=== PATIENT | female | born 1960 | race Caucasian/White ===

== ENCOUNTER → 2020-01-13 09:22 | Outpatient (BNVA) | payer BC, SELFPAY | PROVIDERS: Family Provider Nurse Practitioner Family; PCP Nurse Practitioner; Visit Provider Nurse Practitioner | DX: E03.9 Hypothyroidism, unspecified (principal); E55.9 Vitamin D deficiency, unspecified | CPT/HCPCS: 80053; 80061; 81000; 82306; 84443 ==

== ENCOUNTER → 2020-06-20 11:45 | Outpatient (BNVA) | payer MEDICARE, OTHER, SELFPAY | PROVIDERS: Family Provider Nurse Practitioner Family; PCP Nurse Practitioner; Visit Provider Nurse Practitioner | DX: E03.9 Hypothyroidism, unspecified (principal); M54.16 Radiculopathy, lumbar region; I10 Essential (primary) hypertension; M25.551 Pain in right hip; E78.2 Mixed hyperlipidemia | CPT/HCPCS: 80053; 80061; 84443 ==

== ENCOUNTER → 2020-06-29 15:12 | Outpatient (BNVA) | payer MEDICARE, OTHER, SELFPAY | PROVIDERS: Family Provider Nurse Practitioner Family; PCP Nurse Practitioner; Referring Provider Nurse Practitioner; Visit Provider Orthopaedic Surgery | DX: M25.551 Pain in right hip (principal) | CPT/HCPCS: 73502 ==

== ENCOUNTER → 2021-02-03 09:22 | Outpatient (BNVA) | payer MEDICARE, OTHER, SELFPAY | PROVIDERS: Family Provider Nurse Practitioner Family; PCP Nurse Practitioner; Visit Provider Nurse Practitioner | DX: E03.9 Hypothyroidism, unspecified (principal); I10 Essential (primary) hypertension; M54.16 Radiculopathy, lumbar region; E78.2 Mixed hyperlipidemia; M16.11 Unilateral primary osteoarthritis, right hip; R42 Dizziness and giddiness | CPT/HCPCS: 80053; 80061; 81000; 84443; 85025 ==

== ENCOUNTER 2021-02-27 09:33 | Outpatient (CLI) | payer MEDICARE, OTHER, SELFPAY ==
--- NOTE | 2021-02-27 10:00 | MM_ITS ---
WS: [id number] BILATERAL DIGITAL SCREENING MAMMOGRAPHY WITH CAD CLINICAL INFORMATION: Z12.39 - Encounter for other screening for malignant neop... HISTORY: Screening mammogram. No current complaints. COMPARISON: TECHNIQUE: Bilateral CC and MLO views. FINDINGS: The breasts are composed of heterogeneous fibroglandular density tissue, which can limit the detectio n of small underlying mass lesions. Punctate and lucent centered calcifications. Benign milk of calci um left breast. No suspicious mass, asymmetry, calcifications, or architectural distortion. No eviden ce of malignancy. MM/[place] [id number] IMPRESSION: BI-RADS: 2-Benign FOLLOW UP: 1 Year Follow-up Recommend return to annual screening mammography.
== END 2021-02-27 09:34 | disposition home or self-care (01) ==
LOC: RADSHAW 09:41
PROVIDERS: PCP Nurse Practitioner; Visit Provider Nurse Practitioner
DX: Z12.31 Encounter for screening mammogram for malignant neoplasm of breast (principal)
CPT/HCPCS: 77067

== ENCOUNTER → 2021-09-22 10:14 | Outpatient (BNVA) | payer MEDICARE, SELFPAY | PROVIDERS: PCP Nurse Practitioner; Visit Provider Nurse Practitioner | DX: M54.16 Radiculopathy, lumbar region (principal); I10 Essential (primary) hypertension; E78.2 Mixed hyperlipidemia; M16.11 Unilateral primary osteoarthritis, right hip; E55.9 Vitamin D deficiency, unspecified; E03.9 Hypothyroidism, unspecified | CPT/HCPCS: 80053; 80061; 82306; 84443 ==

== ENCOUNTER → 2022-03-19 08:42 | Outpatient (BNVA) | payer MEDICARE, SELFPAY | PROVIDERS: PCP Nurse Practitioner; Visit Provider Nurse Practitioner | DX: E03.9 Hypothyroidism, unspecified (principal); E55.9 Vitamin D deficiency, unspecified; E78.2 Mixed hyperlipidemia; I10 Essential (primary) hypertension | CPT/HCPCS: 80053; 80061; 82306; 84443 ==

== ENCOUNTER → 2022-09-25 10:19 | Outpatient (BNVA) | payer MEDICARE, SELFPAY | PROVIDERS: PCP Nurse Practitioner; Visit Provider Nurse Practitioner | DX: R73.9 Hyperglycemia, unspecified (principal); E03.9 Hypothyroidism, unspecified; E55.9 Vitamin D deficiency, unspecified; M54.16 Radiculopathy, lumbar region; I10 Essential (primary) hypertension; M16.11 Unilateral primary osteoarthritis, right hip; E78.2 Mixed hyperlipidemia; Z12.11 Encounter for screening for malignant neoplasm of colon | CPT/HCPCS: 80053; 80061; 82306; 83036; 84443 ==

== ENCOUNTER → 2022-10-30 10:38 | Outpatient (BNVA) | payer MEDICARE, SELFPAY | PROVIDERS: PCP Nurse Practitioner; Visit Provider Orthopaedic Surgery | DX: M12.811 Other specific arthropathies, not elsewhere classified, right shoulder (principal) | CPT/HCPCS: 73030; 99213 ==

== ENCOUNTER 2022-11-23 11:45 | Outpatient (CLI) | payer MEDICARE, SELFPAY ==
--- NOTE | 2022-11-23 11:45 | MR_ITS ---
WS: [id number] MRI RIGHT SHOULDER HISTORY: General shoulder pain. Progressive. Fall 6 years ago. COMPARISON: Radiograph 10/30/2022. TECHNIQUE: Multiplanar sequences of the shoulder joint are submitted. Marked AC joint arthritis with encroachment upon the supraspinatus myotendinous insertion. There is f luid along the AC ligament with hypertrophic osteophytes. Osteophytes encroach upon the supraspinatus tendon where there is a tear. Moderate subacromial impingement. Fluid in the subacromial and subdelt oid bursa. No os acromion. Biceps tendon is not identified within the bicipital groove and probably d islocated. Complete full-thickness tear of the distal supraspinatus tendon with retraction to the medial humeral head. Fraying along the distal surface of the tendon. There is additional signal abnormality with fr aying along the infraspinatus tendon but no full-thickness tear is identified. Subscapularis tendon d oes appear intact but there is significant motion artifact. Small joint effusion surrounding the irwin ral head. Mild coracohumeral interval narrowing encroaching upon the supraspinatus tendon. Labrum cannot be adequately evaluated with this amount of motion. MR/MR shoulder RT wo con* [id number] IMPRESSION: 1. Significant motion artifact. 2. Complete tear supraspinatus tendon with retraction to the medial humeral he ad. 3. Marked fraying along the distal surfaces of the infraspinatus tendon. No de finite tear is identified. 4. Intact subscapularis tendon with narrowing of the coracohumeral interval. 5. Severe AC joint arthritis with osteophyte encroachment upon the supraspinat us tendon at the site of the tear. 6. Biceps tendon not identified in the bicipital groove. Suspect subluxed tend on.
== END 2022-11-23 11:46 ==
PROVIDERS: PCP Nurse Practitioner; Visit Provider Orthopaedic Surgery
DX: M12.811 Other specific arthropathies, not elsewhere classified, right shoulder (principal)
CPT/HCPCS: 73221; 99213; 99214

== ENCOUNTER 2022-11-28 06:24 | Day surgery (SDC) | payer MEDICARE, SELFPAY ==
[2022-11-26 08:16] VITALS: BMI 36.9
[2022-11-28 06:42] VITALS: BP 153/88; PULSE 89; RESP 17; TEMP 36.1; O2SAT 95
[2022-11-28 06:48] LABS: Glucose Point of Care 115 mg/dL (70-110)
[2022-11-28] MEDS: sodium chloride 0.9% 1,000 ML 30 ML IV (06:48)
--- NOTE | 2022-11-28 07:40 | ANES.PREANE2 ---
Pre-Anesthetic Assessment Height/Weight: Height 1.65 m Weight 100.698 kg Temp Pulse Resp BP Pulse Ox O2 Del Method 97.0 F L 89 17 153/88 95 Room Air 11/28/22 06:42 11/28/22 06:42 11/28/22 06:42 11/28/22 06:42 11/28/22 06:42 11/28/22 06:42 Operation Date: 11/28/22 08:00 [place] Procedures p [id number] Colonoscopy Z12.11(Not Applicable) - Henran Li DO Familial anesthetic complications: none Was Beta Yaritza taken within 24 hours: N/A Was Clonidine taken within 24 hours: N/A Last intake: Intake Last Liquid Date 11/26/22 Last Liquid Time 17:00 Last Solid Date 11/27/22 Last Solid Time 22:00 Social No alcohol and No tobacco Exam alert and oriented x 3 Airway Submandibular: within normal limits Cervical ROM: within normal limits Mallampati: Class I Dentition: full History/ROS No significant history except as noted Pulmonary None reported CV/HEM Hypertension None reported Hepatic None reported GI Gastroesophageal Reflux Disease Metabolic Diabetes Mellitus, Hyperlipidemia and Morbid Obesity [facility] [place] None reported Neuropsych None reported Anesthetic Plan ASA status: 3 Anesthesia: Anesthesia Evaluation and MAC Risk of > 500 ml blood loss (7ml/kg in children): No Medications/Allergies Home Medications Medication Instructions Recorded Confirmed Last Taken Type cholecalciferol (vitamin D3) 125 125 mcg PO DAILY #30 caps 09/25/22 11/28/22 11/26/22 Rx mcg (5,000 unit) capsule duloxetine 60 mg capsule,delayed 60 mg PO BID #180 caps 09/25/22 11/28/22 11/26/22 Rx release (Cymbalta) furosemide 20 mg tablet (Lasix) 20 mg PO QAM #90 tabs 09/25/22 11/28/22 11/26/22 Rx losartan 100 mg tablet 100 mg PO DAILY #90 tabs 09/25/22 11/28/22 11/26/22 Rx lovastatin 40 mg tablet 40 mg PO DAILY #90 tabs 09/25/22 11/28/22 11/26/22 Rx meloxicam 7.5 mg tablet 7.5 mg PO DAILY #90 tabs 09/25/22 11/28/22 11/26/22 Rx metformin 500 mg tablet,extended 1,000 mg PO DAILY #180 tabs 09/25/22 11/28/22 11/25/22 Rx release 24 hr thyroid (pork) 240 mg tablet 240 mg PO DAILY #90 tabs 09/25/22 11/28/22 11/26/22 Rx ([place] Thyroid) trazodone 150 mg tablet 150 mg PO .at bedtime #90 tabs 09/25/22 11/28/22 11/27/22 Rx semaglutide 1 mg/dose (4 mg/3 mL) 1 mg (0.75 mL) SUBCUT .weekly #6 mL 11/01/22 11/28/22 11/21/22 Rx subcutaneous pen injector (Ozempic) Allergies Allergy/AdvReac Type Severity Reaction Status Date / Time Sulfa (Sulfonamide Allergy Intermediate rash Verified 11/28/22 06:43 Antibiotics) aspirin Allergy currently Verified 11/28/22 06:43 unknown hydrocodone Allergy currently Verified 11/28/22 06:43 [From Hycomine unknown (hydrocodone-PPA)] phenylpropanolamine Allergy currently Verified 11/28/22 06:43 [From Hycomine unknown (hydrocodone-PPA)] Current Medications Generic Name Dose Route Start Last Admin Trade Name Freq PRN Reason Stop Dose Admin Sodium Chloride 1,000 mls @ 30 mls/hr 11/28/22 06:30 11/28/22 06:48 Sodium Chloride 0.9% IV 11/29/22 06:29 30 mls/hr .Q24H STEPHEN Administration PFSH Anesthesia Medical History (Updated 11/28/22 @ 08:26 by Hernan Li DO) Adult hypothyroidism CKD (chronic kidney disease) Diabetes mellitus with hyperglycemia, without long-term current use of insulin Essential hypertension Lumbar radiculopathy Right Leg Mixed hyperlipidemia Vitamin D deficiency Surgical History History of appendectomy History of brain tumor at 18 months of age History of section History of hysterectomy with BSO Family History Mother Cancer CLL Father Hypertension Other Heart disease Social History Smoking and tobacco status: never smoked Second hand smoke exposure: No Smoking risk assessment/counseling performed?: No Alcohol intake: never Desire information about alcohol rehabilitation?: No Counseling given: No Desire information about substance/drug rehabilitation?: No Counseling given: No Adopted: No Caregiver/support person: No Lives independently: Yes Household members: spouse Housing: House Marital status: Number of children: 3 service: No Current occupational status: retired Current gender identity: Female Data Anesthesia Cardiac Studies: No Data to Display
--- NOTE | 2022-11-28 08:26 | PM.HP ---
Providers/Chief Complaint Primary Care Provider: ADRIANA Gamez Chief Complaint: Z12.11 History of Present Illness Dorene Power is a 62 year old female here for her first screening colonoscopy. She denies any family history of colon cancer, nausea, abdominal pain, diarrhea, emesis, hematochezia, melena, constipation and/or diarrhea. Review of Systems General: Reports: 10 or more systems reviewed and unremarkable except in HPI and below Medications/Allergies Home Medications Medication Instructions Recorded Confirmed Last Taken Type cholecalciferol (vitamin D3) 125 125 mcg PO DAILY #30 caps 09/25/22 11/28/22 11/26/22 Rx mcg (5,000 unit) capsule duloxetine 60 mg capsule,delayed 60 mg PO BID #180 caps 09/25/22 11/28/22 11/26/22 Rx release (Cymbalta) furosemide 20 mg tablet (Lasix) 20 mg PO QAM #90 tabs 09/25/22 11/28/22 11/26/22 Rx losartan 100 mg tablet 100 mg PO DAILY #90 tabs 09/25/22 11/28/22 11/26/22 Rx lovastatin 40 mg tablet 40 mg PO DAILY #90 tabs 09/25/22 11/28/22 11/26/22 Rx meloxicam 7.5 mg tablet 7.5 mg PO DAILY #90 tabs 09/25/22 11/28/22 11/26/22 Rx metformin 500 mg tablet,extended 1,000 mg PO DAILY #180 tabs 09/25/22 11/28/22 11/25/22 Rx release 24 hr thyroid (pork) 240 mg tablet 240 mg PO DAILY #90 tabs 09/25/22 11/28/22 11/26/22 Rx ([place] Thyroid) trazodone 150 mg tablet 150 mg PO .at bedtime #90 tabs 09/25/22 11/28/22 11/27/22 Rx semaglutide 1 mg/dose (4 mg/3 mL) 1 mg (0.75 mL) SUBCUT .weekly #6 mL 11/01/22 11/28/22 11/21/22 Rx subcutaneous pen injector (Ozempic) Allergies Allergy/AdvReac Type Severity Reaction Status Date / Time Sulfa (Sulfonamide Allergy Intermediate rash Verified 11/28/22 06:43 Antibiotics) aspirin Allergy currently Verified 11/28/22 06:43 unknown hydrocodone Allergy currently Verified 11/28/22 06:43 [From Hycomine unknown (hydrocodone-PPA)] phenylpropanolamine Allergy currently Verified 11/28/22 06:43 [From Hycomine unknown (hydrocodone-PPA)] PFSH Acute PFSH: Medical History (Updated 11/28/22 @ 08:26 by Hernan Li DO) Adult hypothyroidism CKD (chronic kidney disease) Diabetes mellitus with hyperglycemia, without long-term current use of insulin Essential hypertension Lumbar radiculopathy Right Leg Mixed hyperlipidemia Vitamin D deficiency Surgical History History of appendectomy History of brain tumor at 18 months of age History of section History of hysterectomy with BSO Family History Mother Cancer CLL Father Hypertension Other Heart disease Social History Smoking and tobacco status: never smoked Second hand smoke exposure: No Smoking risk assessment/counseling performed?: No Alcohol intake: never Desire information about alcohol rehabilitation?: No Counseling given: No Desire information about substance/drug rehabilitation?: No Counseling given: No Adopted: No Caregiver/support person: No Lives independently: Yes Household members: spouse Housing: House Marital status: Number of children: 3 service: No Current occupational status: retired Current gender identity: Female Vitals/I&O/Wt Last Vital Signs Temp 97.0 F L 11/28/22 06:42 Pulse 89 11/28/22 06:42 Resp 17 11/28/22 06:42 BP 153/88 11/28/22 06:42 Pulse Ox 95 11/28/22 06:42 O2 Del Method Room Air 11/28/22 06:42 A&P Assessment and plan (1) Colon cancer screening: Plan Colonoscopy The risks and benefits of the procedure, including bleeding, infection, intestinal perforation requiring surgery, missed lesion were explained to the patient. The patient is understanding of the risks and wishes to proceed. Attestations Medical Necessity Statement*: Home Coding Level of Care Code Acute Code for Chg Fwd Diagnoses Colon cancer screening Z12.11
[2022-11-28 09:00] VITALS: BP 150/90; PULSE 92; RESP 18; TEMP 36.8; O2SAT 90
[2022-11-28 09:05] VITALS: BP 141/93; PULSE 91; RESP 18; O2SAT 93
--- NOTE | 2022-11-28 12:01 | ANE.PACU2 ---
Inpatient post-anesthesia follow up: Airway intact: Yes Vital signs: Temperature 98.3 F Pulse Rate 91 Respiratory Rate 18 Blood Pressure 141/93 Pulse Oximetry 93 Oxygen Delivery Me thod Room Air Oxygen Flow Rate Fraction of Inspir ed Oxygen Hydration adequate: Yes Nausea and vomiting: No Pain level: 1 Mental status: Baseline
== END 2022-11-28 09:25 | disposition home or self-care (01) ==
PROVIDERS: PCP Nurse Practitioner; Visit Provider Surgery
PROC: 0DJD8ZZ Inspection of Lower Intestinal Tract, Via Natural or Artificial Opening Endoscopic (ICD-10-PCS; CPT 45378; principal; 2022-11-28 08:00)
DX: Z12.11 Encounter for screening for malignant neoplasm of colon (principal); I12.9 Hypertensive chronic kidney disease with stage 1 through stage 4 chronic kidney disease, or unspecified chronic kidney disease; E11.22 Type 2 diabetes mellitus with diabetic chronic kidney disease; N18.9 Chronic kidney disease, unspecified; K21.9 Gastro-esophageal reflux disease without esophagitis; E78.2 Mixed hyperlipidemia; E66.01 Morbid (severe) obesity due to excess calories; Z68.36 Body mass index [BMI] 36.0-36.9, adult; Z79.84 Long term (current) use of oral hypoglycemic drugs; E55.9 Vitamin D deficiency, unspecified
CPT/HCPCS: 36416; 82962; G0121; J2704; J7030

== ENCOUNTER → 2022-12-04 12:48 | Outpatient (BNVA) | payer MEDICARE, SELFPAY | PROVIDERS: PCP Nurse Practitioner; Visit Provider Orthopaedic Surgery | DX: S46.011D Strain of muscle(s) and tendon(s) of the rotator cuff of right shoulder, subsequent encounter (principal); M19.011 Primary osteoarthritis, right shoulder; X58.XXXD Exposure to other specified factors, subsequent encounter | CPT/HCPCS: 99213 ==

== ENCOUNTER → 2023-01-01 09:44 | Outpatient (BNVA) | payer MEDICARE, SELFPAY | PROVIDERS: PCP Nurse Practitioner; Visit Provider Nurse Practitioner | DX: E11.65 Type 2 diabetes mellitus with hyperglycemia (principal); E55.9 Vitamin D deficiency, unspecified | CPT/HCPCS: 80053; 82306; 83036; 84443 ==

== ENCOUNTER 2023-01-03 06:41 | Day surgery (SDC) | payer MEDICARE, SELFPAY ==
[2023-01-02 09:54] VITALS: BMI 35.6
[2023-01-03] VITALS (13 sets, daily range): BP systolic 114–156; BP diastolic 75–103; PULSE 88–108; RESP 15–20; TEMP 36.1–36.2; O2SAT 90–99
[2023-01-03] MEDS: CELEcoxib 200 mg Capsule 400 MG PO (07:39)
[2023-01-03] MEDS: oxyCODONE 20 mg ER (12 HR) Tablet PO (07:39)
[2023-01-03] MEDS: acetaminophen 500 mg Tablet 1000 MG PO (07:40)
[2023-01-03] MEDS: gabapentin 300 mg Capsule PO (07:40)
[2023-01-03] MEDS: sodium chloride 0.9% 1,000 ML 30 ML IV (07:41)
--- NOTE | 2023-01-03 07:57 | ANES.PREANE2 ---
Pre-Anesthetic Assessment Height/Weight: Height 1.65 m Weight 97.069 kg Temp Pulse Resp BP Pulse Ox O2 Del Method 97 F L 108 H 18 114/85 97 Room Air 01/03/23 07:26 01/03/23 07:26 01/03/23 07:39 01/03/23 07:26 01/03/23 07:26 01/03/23 07:29 Preop Diagnosis: Rotator cuff tear, impingement right shoulder Operation Date: 01/03/23 08:00 Proposed Procedures p Rotator Cuff Repair - Arthroscopy 58619 M75.101(Right) - Med Morrison MD Was Beta Yaritza taken within 24 hours: N/A Was Clonidine taken within 24 hours: N/A Last intake: Intake Last Liquid Date 01/02/23 Last Liquid Time 21:30 Last Solid Date 01/02/23 Last Solid Time 17:00 Social No alcohol and No tobacco Exam alert, oriented x 3, clear to auscultation bilaterally and regular rate & rhythm Airway Submandibular: within normal limits Cervical ROM: within normal limits Mallampati: Class II Dentition: full History/ROS No significant history except as noted and No significant complaints Pulmonary None reported CV/HEM Hypertension None reported Hepatic None reported GI Gastroesophageal Reflux Disease Metabolic Diabetes Mellitus, Morbid Obesity and Thyroid Disease Musc/skel Osteoarthritis/DJD Neuropsych None reported Anesthetic Plan ASA status: 3 Anesthesia: Anesthesia Evaluation and General Risk of > 500 ml blood loss (7ml/kg in children): No Medications/Allergies Home Medications Medication Instructions Recorded Confirmed Last Taken Type meloxicam 7.5 mg tablet 7.5 mg PO DAILY #90 tabs 09/25/22 01/02/23 01/02/23 Rx thyroid (pork) 240 mg tablet 240 mg PO DAILY #90 tabs 09/25/22 01/02/23 01/03/23 06:00 Rx ([place] Thyroid) cholecalciferol (vitamin D3) 125 125 mcg PO DAILY #30 caps 12/31/22 01/02/23 01/03/23 06:00 Rx mcg (5,000 unit) capsule duloxetine 60 mg capsule,delayed 60 mg PO BID #180 caps 12/31/22 01/02/23 01/03/23 06:00 Rx release (Cymbalta) furosemide 20 mg tablet (Lasix) 20 mg PO QAM #90 tabs 12/31/22 01/02/23 01/02/23 Rx losartan 100 mg tablet 100 mg PO DAILY #90 tabs 12/31/22 01/02/23 01/03/23 06:00 Rx lovastatin 40 mg tablet 40 mg PO DAILY #90 tabs 12/31/22 01/02/23 01/02/23 Rx metformin 500 mg tablet,extended 1,000 mg PO DAILY #180 tabs 12/31/22 01/02/23 01/01/23 Rx release 24 hr semaglutide 1 mg/dose (4 mg/3 mL) 1 mg (0.75 mL) SUBCUT .weekly #6 mL 12/31/22 01/02/23 12/28/22 Rx subcutaneous pen injector (Ozempic) trazodone 150 mg tablet 150 mg PO .at bedtime #90 tabs 12/31/22 01/02/23 01/02/23 Rx Allergies Allergy/AdvReac Type Severity Reaction Status Date / Time Sulfa (Sulfonamide Allergy Intermediate rash Verified 01/02/23 09:51 Antibiotics) aspirin Allergy currently Verified 01/02/23 09:51 unknown hydrocodone Allergy currently Verified 01/02/23 09:51 [From Hycomine unknown (hydrocodone-PPA)] phenylpropanolamine Allergy currently Verified 01/02/23 09:51 [From Hycomine unknown (hydrocodone-PPA)] Current Medications Generic Name Dose Route Start Last Admin Trade Name Freq PRN Reason Stop Dose Admin Sodium Chloride 1,000 mls @ 30 mls/hr 01/03/23 07:15 01/03/23 07:41 Sodium Chloride 0.9% IV 01/04/23 07:14 30 mls/hr .Q24H STEPHEN Administration PFSH Anesthesia Medical History Adult hypothyroidism CKD (chronic kidney disease) Diabetes mellitus with hyperglycemia, without long-term current use of insulin Essential hypertension Lumbar radiculopathy Right Leg Mixed hyperlipidemia Vitamin D deficiency Surgical History (Updated 12/31/22 @ 16:06 by SUSU Gamez-C) History of appendectomy History of brain tumor at 18 months of age History of section History of colonoscopy 11/2022 negative OZH History of hysterectomy with BSO Family History Mother Cancer CLL Father Hypertension Other Heart disease Social History Smoking and tobacco status: never smoked Second hand smoke exposure: No Smoking risk assessment/counseling performed?: No Alcohol intake: never Desire information about alcohol rehabilitation?: No Counseling given: No Substance/Drug Use: never Desire information about substance/drug rehabilitation?: No Counseling given: No Adopted: No Caregiver/support person: No Lives independently: Yes Household members: spouse Housing: House Marital status: Number of children: 3 service: No Current occupational status: retired Do you think of yourself as: Straight/Heterosexual Current gender identity: Female Data Anesthesia Cardiac Studies: No Data to Display
--- NOTE | 2023-01-03 08:08 | W.PM.OPSUD ---
Surgery/Procedure H&P Update DATE OF PROCEDURE: January 03, 2023 DATE H&P PERFORMED: 12/04/22 H&P UPDATE INFORMATION: I have reviewed H&P completed within last 30 days PREOP DIAGNOSIS: Rotator cuff tear, impingement right shoulder PLANNED PROCEDURE: Operation Date: 01/03/23 08:00 Proposed Procedures p Rotator Cuff Repair - Arthroscopy 10568 M75.101(Right) - Med Morrison MD
[2023-01-03] MEDS: ceFAZolin 2,000 MG in sodium chloride 0.9% (plus) 50 ML 100 MG IV (08:22)
[2023-01-03 09:41] LABS: Glucose Point of Care 98 mg/dL (70-110)
--- NOTE | 2023-01-03 10:29 | ANES.PROC ---
Anesthesia Procedures Procedure/Date: 01/03/23 Nerve Block ^: Nerve Block 1: Main Anesthesia: general anesthesia Time Out Performed: Yes Consent: requested by attending/covering physician, from patient, risks and benefits reviewed and patient agrees to proceed Nerve block location: interscalene Anesthesia monitors applied: pulse oximetry, EKG, BP cuff and oxygen Nerve block position: semi sitting Anesthetic Used: ropivicaine 0.5% Amount of anesthesia used (mL): 30 Ultrasound used to: recognize landmarks and visualize and ID brachial plexus Nerve Stimulator Used?: No Interscalene/Femoral BLK: 2 stimuplex 22 g needle used for position and inplane approach Injection: neg aspiration of heme Patient Tolerated Procedure: well Complications: none
--- NOTE | 2023-01-03 10:50 | P.OP_ITS ---
Operative Report Date of procedure: January 03, 2023 Pre-op diagnosis: Preop Diagnosis Rotator cuff tear, impingement right shoulder Post-op diagnosis: same Procedure done: Arthroscopic repair right rotator cuff, arthroscopic right subacromial decompression Implants: [place] [employer] [place] Regeneten, [place] [employer] [place] Helicoil 4.5 mm anchors x2, [place] [employer] [place] Multifix x1 Pathology: none sent Surgeon: Med Morrison Anesthesia: General and Nerve Block (Interscalene block) Estimated blood loss (mL): 5 Complications: None Findings: The patient had a large tear of her rotator cuff involving the entirety of the supraspinatus and most superior infraspinatus muscles with retraction near to the level of the glenoid. Tendon quality was fair. With marginal convergence the rotator cuff could be brought to the proximity of the most medial footprint attachment. She had prominent spurring of her acromion. Her biceps tendon was absent. Condition: stable Disposition: PACU Brief History: The patient is a 62-year-old female with chronic right shoulder pain dating back to a fall 6 years ago. She describes not only pain but difficulty with reaching overhead or back behind her. An MRI revealed a large tear of the supraspinatus with reasonable muscle quality. She has subacromial impingement and enlargement of her distal clavicle but no tenderness over the clavicles to suggest that the joint itself with a source of pain. Procedure: The patient was given a interscalene block in the holding. She was taken to the operating room where she was provided a general anesthesia and 2 g of Ancef. She was positioned in the lateral position with her right arm in 15 pounds of traction. She was draped in the usual fashion. A timeout was performed. The shoulder was entered through a standard posterior portal made 2 cm inferior medial to the posterior corner of the acromion. The scope was introduced to the joint and the large tear identified. No significant humeral head or glenoid chondromalacia was noted. The biceps tendon was absent a large tear of the rotator cuff was noted. The scope could not easily be directed to the subacromial space. A lateral and anterior portals were opened up with a scalpel blade. Initially working through the lateral portal the leading edge of the acromion was outlined. A 5.5 mm acromionizer was introduced and approximately 6 mm of anterior inferior acromion removed. This made room for the rotator cuff repair and provided enhanced vascularity for healing. Attention was then focused on the rotator cuff. Debridement of bursal tissues was removed revealing what appeared to be a fairly large U-shaped tear involving the entirety of the supraspinatus and the most superior fibers of the infraspinatus. The posterior flap could be drawn anteriorly converging on the anterior flap to narrow the size of the tear and enhance repair and a marginal convergence repair was initiated. A [place] [employer] [place] FirstPass suture passer was used to shuttle a Ultratape suture through the posterior apex of the tear. With a sharp retriever this was then passed through the anterior flap and retr ieved through the anterior cannula. Both sutures were passed through the lateral cannula and secured closing the apex of the cuff. This was repeated 2 additional times moving laterally approximately 5 mm converging the rotator cuff within a few millimeters of the most medial edge of the tuberosity. An incisor shaver was then used to debride the most medial tuberosity down to healthy trabecular bone. A [place] [employer] [place] Helicoil 4.5 mm anchor was placed in the greater tuberosity just lateral to the posterior aspect of the repair. The [place] [employer] [place] FirstPass suture passer was used to shuttle each limb of the suture through the posterior cuff. The most anterior limb was brought medial to the last intratendinous suture. A second anchor was placed in the medial tuberosity just lateral to the anterior repair tissue and sutures passed in identical fashion. The sutures were secured with a sliding Mchugh knot alternating half hitches bringing that cuff to the medial tuberosity. All s utures were then retrieved through the lateral portal and passed through a MultiFix anchor. A MultiFix anchor was placed centrally and laterally bringing the more lateral cuff down to bone. Due to the extensive intratendinous repair and a compromised tissue quality decision was made to proceed with a biological implant for augmentation. Through a 6 more anterior and distal incision the [place] Regeneten patch was introduced. It extended from the most medial intratendinous suture down to the debrided tuberosity. It was fixed medially with to soft tissue fabiana and anterior and posteriorly with additional soft tissue fabiana. 2 lateral bone fabiana were placed securing the implant. Intraoperative photos showed the repaired cuff. The shoulder was irrigated with saline. Portals were closed with 3-0 Prolene. Sterile dressings were applied consisting of OpSite and a Aquaphor dressing. Patient was placed in a sling.. The patient was extubated and taken to the recovery room in stable condition.
[2023-01-03] MEDS: oxyCODONE 5 mg IR Tab/Cap PO (12:47)
--- NOTE | 2023-01-03 13:03 | PC.NURSE ---
dr. nino notified of pt o2 sat 90% on room air. pt not having shortness of breath or difficulties. pt states ready to go home.
--- NOTE | 2023-01-03 16:51 | ANE.PACU2 ---
Inpatient post-anesthesia follow up: Airway intact: Yes Vital signs: Temperature 97 F Pulse Rate 101 Respiratory Rate 18 Blood Pressure 141/77 Pulse Oximetry 90 Oxygen Delivery Me thod Room Air Oxygen Flow Rate 3 Fraction of Inspir ed Oxygen Hydration adequate: Yes Nausea and vomiting: No Pain level: 1 Mental status: Baseline
== END 2023-01-03 13:10 | disposition home or self-care (01) ==
PROVIDERS: PCP Nurse Practitioner; Visit Provider Orthopaedic Surgery
PROC: (CPT 29827; principal; 2023-01-03 08:00)
DX: M75.101 Unspecified rotator cuff tear or rupture of right shoulder, not specified as traumatic (principal); M75.41 Impingement syndrome of right shoulder; I12.9 Hypertensive chronic kidney disease with stage 1 through stage 4 chronic kidney disease, or unspecified chronic kidney disease; K21.9 Gastro-esophageal reflux disease without esophagitis; E11.9 Type 2 diabetes mellitus without complications; E66.01 Morbid (severe) obesity due to excess calories; Z68.35 Body mass index [BMI] 35.0-35.9, adult; E03.9 Hypothyroidism, unspecified; Z79.85 Long-term (current) use of injectable non-insulin antidiabetic drugs; N18.9 Chronic kidney disease, unspecified; E78.2 Mixed hyperlipidemia; E55.9 Vitamin D deficiency, unspecified
CPT/HCPCS: 29826; 29827; 36416; 82962; C1713; J0690; J1100; J2250; J2370; J2405; J2704; J2795; J3010; J3490; J7030

== ENCOUNTER 2023-01-10 06:00 | Outpatient (RCR) | payer MEDICARE, SELFPAY | END 2023-02-08 23:59 | disposition home or self-care (01) | LOC: APT 06:00 | PROVIDERS: Visit Provider Orthopaedic Surgery | DX: Z47.89 Encounter for other orthopedic aftercare (principal) | CPT/HCPCS: 97110; 97161 ==

== ENCOUNTER → 2023-01-11 08:45 | Outpatient (BNVA) | payer MEDICARE, SELFPAY | PROVIDERS: PCP Nurse Practitioner; Visit Provider Nurse Practitioner Family | DX: S46.011A Strain of muscle(s) and tendon(s) of the rotator cuff of right shoulder, initial encounter (principal); X58.XXXA Exposure to other specified factors, initial encounter; M19.011 Primary osteoarthritis, right shoulder; M25.811 Other specified joint disorders, right shoulder; Z98.890 Other specified postprocedural states | CPT/HCPCS: 99024 ==

== ENCOUNTER → 2023-01-16 08:37 | Outpatient (BNVA) | payer MEDICARE, SELFPAY | PROVIDERS: Visit Provider Orthopaedic Surgery | DX: Z98.890 Other specified postprocedural states (principal) | CPT/HCPCS: 99024 ==

== ENCOUNTER → 2023-01-30 09:13 | Outpatient (BNVA) | payer MEDICARE, SELFPAY | PROVIDERS: Visit Provider Orthopaedic Surgery | DX: Z98.890 Other specified postprocedural states (principal) | CPT/HCPCS: 99024 ==

== ENCOUNTER 2023-02-09 06:00 | Outpatient (RCR) | payer MEDICARE, SELFPAY | END 2023-03-11 23:59 | disposition home or self-care (01) | LOC: APT 06:00 | PROVIDERS: Visit Provider Orthopaedic Surgery | DX: Z47.89 Encounter for other orthopedic aftercare (principal) | CPT/HCPCS: 97110; 97112; 97530 ==

== ENCOUNTER → 2023-02-27 09:24 | Outpatient (BNVA) | payer MEDICARE, SELFPAY | PROVIDERS: Visit Provider Nurse Practitioner Family | DX: Z98.890 Other specified postprocedural states (principal) | CPT/HCPCS: 99024; 99213 ==

== ENCOUNTER 2023-03-12 06:00 | Outpatient (RCR) | payer MEDICARE, SELFPAY | END 2023-04-11 23:59 | disposition home or self-care (01) | LOC: APT 06:00 | PROVIDERS: Visit Provider Orthopaedic Surgery | DX: Z47.89 Encounter for other orthopedic aftercare (principal) | CPT/HCPCS: 97110; 97140 ==

== ENCOUNTER → 2023-03-20 11:22 | Outpatient (BNVA) | payer MEDICARE, SELFPAY | PROVIDERS: PCP Nurse Practitioner; Visit Provider Nurse Practitioner | DX: E11.65 Type 2 diabetes mellitus with hyperglycemia (principal); E55.9 Vitamin D deficiency, unspecified | CPT/HCPCS: 80053; 80061; 82043; 82306; 83036; 84443 ==

== ENCOUNTER → 2023-03-27 09:25 | Outpatient (BNVA) | payer MEDICARE, SELFPAY | PROVIDERS: PCP Nurse Practitioner; Visit Provider Nurse Practitioner Family | DX: Z98.890 Other specified postprocedural states (principal) | CPT/HCPCS: 99024; 99213 ==

== ENCOUNTER 2023-04-12 06:00 | Outpatient (RCR) | payer MEDICARE, SELFPAY | END 2023-05-11 23:59 | disposition home or self-care (01) | LOC: APT 06:00 | PROVIDERS: PCP Nurse Practitioner; Visit Provider Orthopaedic Surgery | DX: Z47.89 Encounter for other orthopedic aftercare (principal) | CPT/HCPCS: 97110 ==

== ENCOUNTER 2023-04-17 11:12 | Outpatient (CLI) | payer MEDICARE, SELFPAY ==
--- NOTE | 2023-04-17 11:48 | MM_ITS ---
WS: [id number] Bilateral screening 3D tomosynthesis digital mammogram, 04/17/2023 Clinical Data: Z12.31 - Encounter for screening mammogram for malignant ... Comparison: 02/27/2021, 03/25/2017, 01/12/2014, 12/24/2011, 06/09/2010, 09/20/2006. Findings: The breast parenchymal pattern shows fibroglandular tissue. No spiculated masses or clustered calcifi cations are seen. There are no secondary signs of carcinoma. There are small benign calcifications in both breasts. There are lymph nodes in both axilla. Impression: 1. Negative bilateral mammogram unchanged. 2. Recommend annual screening mammograms. MM/[place] [id number] BIRADS: 1-Negative FOLLOW UP: 1 Year Follow-up The CAD motor checker was used.
== END 2023-04-17 11:13 | disposition home or self-care (01) ==
PROVIDERS: PCP Nurse Practitioner; Visit Provider Nurse Practitioner
DX: Z12.31 Encounter for screening mammogram for malignant neoplasm of breast (principal)
CPT/HCPCS: 77063; 77067

== ENCOUNTER 2023-05-12 06:00 | Outpatient (RCR) | payer MEDICARE, SELFPAY | END 2023-06-11 23:59 | disposition home or self-care (01) | LOC: APT 06:00 | PROVIDERS: PCP Nurse Practitioner; Visit Provider Orthopaedic Surgery | DX: Z47.89 Encounter for other orthopedic aftercare (principal) | CPT/HCPCS: 97110; 97530 ==

== ENCOUNTER → 2023-05-29 09:08 | Outpatient (BNVA) | payer MEDICARE, SELFPAY | PROVIDERS: PCP Nurse Practitioner; Visit Provider Nurse Practitioner | DX: E11.65 Type 2 diabetes mellitus with hyperglycemia (principal); E03.9 Hypothyroidism, unspecified | CPT/HCPCS: 80053; 83036; 84443 ==

== ENCOUNTER → 2023-08-21 10:00 | Outpatient (BNVA) | payer MEDICARE, SELFPAY | PROVIDERS: PCP Nurse Practitioner; Visit Provider Nurse Practitioner | DX: E03.9 Hypothyroidism, unspecified (principal); E11.9 Type 2 diabetes mellitus without complications | CPT/HCPCS: 80053; 80061; 83036; 84443 ==

== ENCOUNTER → 2024-04-06 10:09 | Outpatient (BNVA) | payer MEDICARE, SELFPAY | PROVIDERS: PCP Nurse Practitioner; Visit Provider Nurse Practitioner | DX: E11.9 Type 2 diabetes mellitus without complications (principal); E11.65 Type 2 diabetes mellitus with hyperglycemia | CPT/HCPCS: 80053; 80061; 82607; 83036; 84443 ==

== ENCOUNTER → 2024-05-27 09:08 | Outpatient (BNVA) | payer MEDICARE, SELFPAY | PROVIDERS: PCP Nurse Practitioner; Visit Provider Nurse Practitioner | DX: I10 Essential (primary) hypertension (principal); E03.9 Hypothyroidism, unspecified | CPT/HCPCS: 80048; 84443 ==

== ENCOUNTER → 2024-06-01 10:28 | Outpatient (BNVA) | payer MEDICARE, SELFPAY | PROVIDERS: PCP Nurse Practitioner; Referring Provider Nurse Practitioner; Visit Provider Internal Medicine Cardiovascular Disease | DX: R00.2 Palpitations (principal); I49.1 Atrial premature depolarization; I49.3 Ventricular premature depolarization; I47.20 Ventricular tachycardia, unspecified; I47.10 Supraventricular tachycardia, unspecified | CPT/HCPCS: 93242 ==

== ENCOUNTER → 2024-07-22 08:58 | Outpatient (BNVA) | payer MEDICARE, OTHER, SELFPAY | PROVIDERS: PCP Nurse Practitioner; Visit Provider Nurse Practitioner | DX: E03.9 Hypothyroidism, unspecified (principal) | CPT/HCPCS: 84443 ==

== ENCOUNTER → 2024-10-15 08:36 | Outpatient (BNVA) | payer MEDICARE, OTHER, SELFPAY | PROVIDERS: PCP Nurse Practitioner; Visit Provider Nurse Practitioner | DX: I10 Essential (primary) hypertension (principal); E11.65 Type 2 diabetes mellitus with hyperglycemia; E78.2 Mixed hyperlipidemia; E03.9 Hypothyroidism, unspecified; E55.9 Vitamin D deficiency, unspecified | CPT/HCPCS: 80053; 80061; 82306; 83036; 84443; 85651; 86140; 86431 ==

== ENCOUNTER 2024-10-21 09:14 | Outpatient (CLI) | payer MEDICARE, OTHER, SELFPAY ==
--- NOTE | 2024-10-21 09:30 | MR_ITS ---
WS: [id number] MRI BRAIN WITHOUT CONTRAST HISTORY: R20.2 - Paresthesia of skin, history of prior remote tumor resection. COMPARISON: None available. TECHNIQUE: Diffusion imaging, multiplanar T1, T2 and FLAIR imaging obtained. No evidence for acute infarct or hemorrhage. Sweet-white matter differentiation is normal. Area of gliosis and volume loss in the LEFT temporal lobe. This may be the site of prior tumor removal. Additional scattered T2 and FLAIR signal hyperintensities from small vessel disease. No significant atrophy. Mild hippocampal atrophy. Ventricles and extra-axial spaces are normal. No inferior displacement of cerebellar tonsils. Empty sella turcica. Pituitary gland is small caliber in the base of the dorsum sellae. Dural venous sinuses and [place] demonstrate no abnormality on this unenhanced studies. Paranasal sinuses: Clear. Mastoid air cells: Normal. Calvarium and scalp: Intact. MR/MR head wo con* [id number] IMPRESSION: 1. No acute infarct or hemorrhage. 2. Gliosis with volume loss LEFT temporal lobe. This may be the site of prior remote tumor resection. 3. Mild small vessel ischemic disease. 4. Mild hippocampal atrophy.
== END 2024-10-21 09:15 | disposition home or self-care (01) ==
LOC: RAD 09:17
PROVIDERS: PCP Nurse Practitioner; Visit Provider Nurse Practitioner
DX: R20.2 Paresthesia of skin (principal); H53.9 Unspecified visual disturbance; G93.89 Other specified disorders of brain; G31.89 Other specified degenerative diseases of nervous system; I67.82 Cerebral ischemia; R93.0 Abnormal findings on diagnostic imaging of skull and head, not elsewhere classified; E23.6 Other disorders of pituitary gland
CPT/HCPCS: 70551

== ENCOUNTER → 2025-02-01 09:11 | Outpatient (BNVA) | payer MEDICARE, OTHER, SELFPAY | PROVIDERS: PCP Nurse Practitioner; Visit Provider Nurse Practitioner | DX: E03.9 Hypothyroidism, unspecified (principal); E11.65 Type 2 diabetes mellitus with hyperglycemia; E55.9 Vitamin D deficiency, unspecified | CPT/HCPCS: 80053; 82306; 82607; 83036 ==

== ENCOUNTER 2025-02-16 14:45 | Outpatient (CLI) | payer MEDICARE, SELFPAY ==
--- NOTE | 2025-02-16 14:40 | MM_ITS ---
WS: [id number] BILATERAL 3D TOMOSYNTHESIS DIGITAL SCREENING MAMMOGRAPHY WITH CAD CLINICAL INFORMATION: Z12.31 - Encounter for screening mammogram for malignant ... HISTORY: Screening mammogram. No current complaints. COMPARISON: 2022 TECHNIQUE: Bilateral CC and MLO views. FINDINGS: The breasts are composed of heterogeneous fibroglandular density tissue, which can limit the detection of small underlying mass lesions. Small lobulated ovoid nodule outer RIGHT breast appears new from previous. This may present an intramammary lymph node but technically indeterminate. Recommend further evaluation with RIGHT breast diagnostic mammography and ultrasound if persistent. Unremarkable LEFT breast. MM/MM [facility] tomosynthesis [id number] IMPRESSION: DENSITY: The breasts are heterogeneously dense, which may obscure small masses. BI-RADS: 0 - Incomplete: Need additional imaging evaluation FOLLOW UP: Need Additional Imaging Recommend RIGHT breast diagnostic mammography and ultrasound if persistent.
== END 2025-02-16 14:46 | disposition home or self-care (01) ==
PROVIDERS: PCP Nurse Practitioner; Visit Provider Nurse Practitioner
DX: Z12.31 Encounter for screening mammogram for malignant neoplasm of breast (principal); R92.333 Mammographic heterogeneous density, bilateral breasts; N63.11 Unspecified lump in the right breast, upper outer quadrant
CPT/HCPCS: 77063; 77067

== ENCOUNTER 2025-03-08 13:51 | Outpatient (CLI) | payer MEDICARE, OTHER, SELFPAY ==
--- NOTE | 2025-03-08 14:30 | MM_ITS ---
WS: [id number] RIGHT 3D TOMOSYNTHESIS DIGITAL MAMMOGRAPHY WITH CAD CLINICAL INFORMATION: R92.8 - Other abnormal and inconclusive findings on diagn... HISTORY: Additional views COMPARISON: 02/16/2025 TECHNIQUE: 3 views of the right breast were obtained. FINDINGS: The breasts are composed of heterogeneous fibroglandular density tissue, which can limit the detection of small underlying mass lesions Persistent previously described small nodule outer RIGHT breast. Ultrasound is pending. ULTRASOUND BREAST RIGHT TECHNIQUE: Ultrasound right breast focused area of concern. CLINICAL INFORMATION: R92.8 - Other abnormal and inconclusive findings on diagn... FINDINGS: Ultrasound outer RIGHT breast 8-10 o'clock. There is a well-circumscribed ovoid echogenic lesion measuring 1.1 x 0.8 cm likely corresponding to the mammographic findings most compatible with incidental benign lipoma or fibroadenolipoma at the 9 o'clock position 6 cm from the nipple. Findings have a benign appearance. Recommend return to annual screening mammography. MM/MM diag RT tomosynthesis [id number] IMPRESSION: DENSITY: The breasts are heterogeneously dense, which may obscure small masses. BI-RADS: 2 - Benign. FOLLOW UP: 1 Year Follow-up Recommend return to annual screening mammography.
--- NOTE | 2025-03-08 15:00 | US_ITS ---
WS: [id number] RIGHT 3D TOMOSYNTHESIS DIGITAL MAMMOGRAPHY WITH CAD CLINICAL INFORMATION: R92.8 - Other abnormal and inconclusive findings on diagn... HISTORY: Additional views COMPARISON: 02/16/2025 TECHNIQUE: 3 views of the right breast were obtained. FINDINGS: The breasts are composed of heterogeneous fibroglandular density tissue, which can limit the detection of small underlying mass lesions Persistent previously described small nodule outer RIGHT breast. Ultrasound is pending. ULTRASOUND BREAST RIGHT TECHNIQUE: Ultrasound right breast focused area of concern. CLINICAL INFORMATION: R92.8 - Other abnormal and inconclusive findings on diagn... FINDINGS: Ultrasound outer RIGHT breast 8-10 o'clock. There is a well-circumscribed ovoid echogenic lesion measuring 1.1 x 0.8 cm likely corresponding to the mammographic findings most compatible with incidental benign lipoma or fibroadenolipoma at the 9 o'clock position 6 cm from the nipple. Findings have a benign appearance. Recommend return to annual screening mammography. US/US breast RT limited* [id number] IMPRESSION: DENSITY: The breasts are heterogeneously dense, which may obscure small masses. BI-RADS: 2 - Benign. FOLLOW UP: 1 Year Follow-up Recommend return to annual screening mammography.
== END 2025-03-08 13:52 | disposition home or self-care (01) ==
LOC: RAD 13:54
PROVIDERS: PCP Nurse Practitioner; Visit Provider Nurse Practitioner
DX: R92.8 Other abnormal and inconclusive findings on diagnostic imaging of breast (principal); R92.333 Mammographic heterogeneous density, bilateral breasts
CPT/HCPCS: 76642; 77061; G0279

== ENCOUNTER → 2025-04-26 09:01 | Outpatient (BNVA) | payer MEDICARE, OTHER, SELFPAY | PROVIDERS: PCP Nurse Practitioner; Visit Provider Nurse Practitioner | DX: E11.65 Type 2 diabetes mellitus with hyperglycemia (principal); E03.9 Hypothyroidism, unspecified; E55.9 Vitamin D deficiency, unspecified | CPT/HCPCS: 80053; 80061; 81000; 82043; 82306; 82607; 83036; 84443 ==

== ENCOUNTER 2025-06-07 09:21 | Outpatient (RCR) | payer MEDICARE, OTHER, SELFPAY | END 2025-06-11 23:59 | disposition home or self-care (01) | LOC: APT 09:21 | PROVIDERS: PCP Nurse Practitioner; Visit Provider Nurse Practitioner | DX: R42 Dizziness and giddiness (principal) | CPT/HCPCS: 97110; 97161; 97530 ==